=== PATIENT | female | born 2005 | race Caucasian/White ===

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

== ENCOUNTER → 2025-05-07 14:11 | Outpatient (BNVA) | payer OTHER, SELFPAY | PROVIDERS: PCP Clinical Nurse Specialist Adult Health; Visit Provider Clinical Nurse Specialist Adult Health | DX: E55.9 Vitamin D deficiency, unspecified (principal) | CPT/HCPCS: 82306 ==

== ENCOUNTER → 2025-08-08 13:20 | Outpatient (BNVA) | payer OTHER, SELFPAY | PROVIDERS: Visit Provider Clinical Nurse Specialist Adult Health | DX: E55.9 Vitamin D deficiency, unspecified (principal); G43.E09 Chronic migraine with aura, not intractable, without status migrainosus; L30.9 Dermatitis, unspecified | CPT/HCPCS: 82306; 82607; 84439; 84443 ==